=== PATIENT | female | born 1930 | race Caucasian/White ===

== ENCOUNTER 2017-02-06 09:45 | Emergency (ER) | payer OTHER ==
[~2017-02-06] VITALS: Ht 154.9 cm; Wt 54.4 kg
[~2017-02-06 09:45] MED LIST: ANTIVERT12.5 MG PO; APAP500 PO; CATHFLO ACT2 MG/VIA1; DARVOCET-N 1001 EACH PO; FLEXERIL PO; FORTICAL1 SPRAY NASAL; HCTZ PO; HYDROCODON-ACE1 EAC7 PO; IMIPENEM-CILAS500 MG; K-DUR10 MEQ PO; LASIX 40 MG TAB40 M2 PO; LISINOPRIL10 MG PO; MULTI FOR HER400 MCG PO; NORCO 5-325 TA1 EACH PO; SULINDAC 150 M150 MG PO; ULTRAM 50MG TAB50 MG PO
[2017-02-06] MEDS ORDERED: FUROSEMIDE 40 M40 M1 PO (09:52)
[2017-02-06] MEDS ORDERED: MIACALCIN200 IU/ML IM (09:52)
[2017-02-06] MEDS ORDERED: KLOR-CON 1010 MEQ PO (09:52)
[2017-02-06] MEDS ORDERED: LISINOPRIL10 MG PO (09:53)
[2017-02-06 11:23] LABS: HEMATOCRIT 38.8 % (37.0-47.0); HEMOGLOBIN 12.9 gm/dL (12.0-15.0); MCH 31.3 pg (26.0-34.0); MCHC 33.3 g/dL (28.0-37.0); MCV 93.8 fL (80.0-100.0); PLATELET COUNT 189 thou/uL (150-400); RBC 4.14 mil/uL (4.20-5.00); RDW 13.6 % (10.5-14.5); WBC 9.7 thou/uL (4.0-11.0)
[2017-02-06 11:24] LABS: MANUAL DIFF YES
[2017-02-06 11:29] LABS: CALCIUM 8.8 mg/dL (8.5-10.1); CREATININE 0.9 mg/dL (0.6-1.0); POTASSIUM 3.7 mmol/L (3.5-5.1)
[2017-02-06 13:01] LABS: ABSOLUTE NEUTROPHILS 7.7 thou/uL (1.4-8.2); PLATELET ESTIMATE NORMAL; TOTAL CELL COUNT 100
== END 2017-02-06 14:15 | disposition home or self-care (01) ==
LOC: ER 09:45
PROVIDERS: Emergency Medicine
DX: S39.012A Strain of muscle, fascia and tendon of lower back, initial encounter (principal); S32.19XA Other fracture of sacrum, initial encounter for closed fracture; I10 Essential (primary) hypertension; N28.9 Disorder of kidney and ureter, unspecified; X58.XXXA Exposure to other specified factors, initial encounter; Y93.89 Activity, other specified; Y92.89 Other specified places as the place of occurrence of the external cause; Y99.8 Other external cause status